=== PATIENT | female | born 1955 | race Asian ===

== ENCOUNTER 2018-05-11 16:24 | Emergency (ER) | payer MEDICAID ==
[~2018-05-11] VITALS: Ht 152.4 cm; Wt 60.8 kg
[2018-05-11 16:26] VITALS: Ht 152.4 cm; Wt 60.8 kg
[2018-05-11 18:00] LABS: BASOPHIL % 0.3 % (0-2); PLATELET COUNT 320 x10^3mcL (130-400); RED CELL DISTRIBUTION WIDTH 14.1 % (11.5-14.5)
[2018-05-11 18:12] LABS: CALCIUM 9.3 mg/dL (8.5-10.1); CARBON DIOXIDE 28.2 mmol/L (21-32); CHLORIDE SERUM 104 mmol/L (98-107); CREATININE SERUM 0.9 mg/dL (0.6-1.0); GFR1 > 60 mL/min; GLUCOSE SERUM 110 mg/dL (74-106); POTASSIUM SERUM 3.5 mmol/L (3.5-5.1); SODIUM SERUM 142 mmol/L (136-145)
[2018-05-11 18:16] LABS: ALBUMIN 3.8 g/dL (3.4-5.0); ALKALINE PHOSPHATASE 71 U/L (46-116); ALT/SGPT 26 U/L (14-59); AST/SGOT 16 U/L (15-37); BILIRUBIN TOTAL 0.25 mg/dL (0.20-1.00); CHOLESTEROL 162 mg/dL (<200); HDL CHOLESTEROL 54 mg/dL (40-60); LIPASE 352 IU/L (73-393); TOTAL PROTEIN, SERUM 7.8 g/dL (6.4-8.2); TRIGLYCERIDES 224 mg/dL (<150)
[2018-05-11 18:27] LABS: FREE T4 0.86 ng/dL (0.76-1.46); FREE THYROXINE INDEX 1.9 ug/dL (1.4-4.5); T4(THYROXINE) 5.5 ug/dL (4.7-13.3)
[2018-05-11 18:32] LABS: T3 TOTAL 0.98 ng/mL
[2018-05-11 19:27] LABS: microscopic required? NO
[2018-05-11 19:42] LABS: urine erythrocyte NEGATIVE (NEGATIVE)
[2018-05-11 20:42] VITALS: BP 119/73
== END 2018-05-11 20:42 | disposition home or self-care (01) ==
LOC: ED 16:24
PROVIDERS: Specialist
DX: R10.13 Epigastric pain (principal)
CPT/HCPCS: 83880; 84439; J1885; J2405; J3010; J3490; Q0092

== ENCOUNTER 2019-11-06 08:35 | Emergency (ER) | payer MEDICAID ==
[~2019-11-06] VITALS: Ht 157.5 cm; Wt 61.2 kg
[2019-11-06 09:46] LABS: BASOPHIL % 0.4 % (0-2); PLATELET COUNT 314 x10^3mcL (130-400); RED CELL DISTRIBUTION WIDTH 13.7 % (11.5-14.5)
[2019-11-06 10:16] LABS: microscopic required? YES; urine erythrocyte TRACE (NEGATIVE)
[2019-11-06 10:19] LABS: ALBUMIN 3.7 g/dL (3.4-5.0); ALKALINE PHOSPHATASE 61 U/L (46-116); ALT/SGPT 41 U/L (14-59); AST/SGOT 27 U/L (15-37); BILIRUBIN TOTAL 0.6 mg/dL (0.20-1.00); CALCIUM 8.6 mg/dL (8.5-10.1); CARBON DIOXIDE 29.6 mmol/L (21-32); CHLORIDE SERUM 103 mmol/L (98-107); CREATININE SERUM 0.7 mg/dL (0.6-1.0); GFR1 > 60 mL/min; GLUCOSE SERUM 94 mg/dL (74-106); LIPASE 136 IU/L (73-393); SODIUM SERUM 141 mmol/L (136-145); TOTAL PROTEIN, SERUM 7.7 g/dL (6.4-8.2)
[2019-11-06 10:28] LABS: POTASSIUM SERUM 2.7 mmol/L (3.5-5.1)
[2019-11-06 13:19] VITALS: BP 126/61
== END 2019-11-06 13:30 | disposition home or self-care (01) ==
LOC: ED 08:35
PROVIDERS: Emergency Medicine
DX: K52.9 Noninfective gastroenteritis and colitis, unspecified (principal); E87.6 Hypokalemia; K62.5 Hemorrhage of anus and rectum; M19.90 Unspecified osteoarthritis, unspecified site
CPT/HCPCS: 36415; 87046; 87046-59

== ENCOUNTER 2019-11-14 07:52 | Emergency (ER) | payer MEDICAID ==
[~2019-11-14] VITALS: Ht 157.5 cm; Wt 59.9 kg
[2019-11-14 07:57] VITALS: Ht 157.5 cm; Wt 59.9 kg
[2019-11-14 08:40] LABS: PLATELET COUNT 338 x10^3mcL (130-400)
[2019-11-14 09:03] LABS: FREE T4 0.95 ng/dL (0.76-1.46); FREE THYROXINE INDEX 2.8 ug/dL (1.4-4.5); T4(THYROXINE) 8.1 ug/dL (4.7-13.3)
[2019-11-14 09:34] LABS: ALBUMIN 4.3 g/dL (3.4-5.0); ALKALINE PHOSPHATASE 66 U/L (46-116); ALT/SGPT 28 U/L (14-59); AST/SGOT 30 U/L (15-37); BILIRUBIN TOTAL 0.34 mg/dL (0.20-1.00); CARBON DIOXIDE 26.4 mmol/L (21-32); CHLORIDE SERUM 102 mmol/L (98-107); CREATININE SERUM 0.9 mg/dL (0.6-1.0); GFR1 > 60 mL/min; GLUCOSE SERUM 85 mg/dL (74-106); POTASSIUM SERUM 3.8 mmol/L (3.5-5.1); SODIUM SERUM 139 mmol/L (136-145); TOTAL PROTEIN, SERUM 8.2 g/dL (6.4-8.2)
[2019-11-14 09:48] LABS: T3 TOTAL 0.94 ng/mL
[2019-11-14 12:19] VITALS: BP 110/59
== END 2019-11-14 12:19 | disposition home or self-care (01) ==
LOC: ED 07:52
PROVIDERS: Emergency Medicine
DX: B34.9 Viral infection, unspecified (principal); E86.0 Dehydration; M19.90 Unspecified osteoarthritis, unspecified site
CPT/HCPCS: 84439; J7030; Q0092